=== PATIENT | male | born 1950 | race Caucasian/White ===

== ENCOUNTER 2018-08-25 19:43 | Emergency (ER) | payer OTHER ==
[2018-08-25] MEDS: IBUPROFEN 600 MG TAB PO (21:20)
== END 2018-08-25 23:15 | disposition home or self-care (01) ==
LOC: FTE 19:43
DX: S52.612A Displaced fracture of left ulna styloid process, initial encounter for closed fracture (principal); R40.2412 Glasgow coma scale score 13-15, at arrival to emergency department; V49.40XA Driver injured in collision with unspecified motor vehicles in traffic accident, initial encounter
CPT/HCPCS: 29125; 73110-LT; 99283-25